=== PATIENT | male | born 2005 | race Caucasian/White ===

== ENCOUNTER 2025-01-17 05:38 | Day surgery (SDC) | payer BC ==
[2025-01-13 12:33] VITALS: BMI 23.6
[2025-01-17] MEDS ORDERED: AFRIN NASAL MIST 15 ML BOT ONE ×2 (06:16→08:22)
[2025-01-17] MEDS ORDERED: Tranexamic Acid 1,000 MG/10 ML VIAL ONE ×2 (06:24→08:22)
[2025-01-17] MEDS ORDERED: Lidocaine 4% Topical Sol 50 ML BOT ONE (06:24)
[2025-01-17] MEDS ORDERED: Oxymetazoline HCl 0.05% (15 ML) ONE (06:30)
[2025-01-17] MEDS ORDERED: Ondansetron PF 4 MG/2 ML Vial ONE (08:18)
[2025-01-17] MEDS ORDERED: Rocuronium Bromide 10 MG/ML (10ML VIAL) ONE (08:18)
[2025-01-17] MEDS ORDERED: SUGAMMADEX SODIUM 200 MG/2 ML VIAL ONE (08:18)
[2025-01-17] MEDS ORDERED: PROPOFOL 20 ML ONE (08:18)
[2025-01-17] MEDS ORDERED: Bacitracin 1 PK ONE (08:22)
[2025-01-17] MEDS ORDERED: Lidocaine 1% w/Epinephrine 1:200K 30 ML VIAL ONE (08:23)
[2025-01-17] MEDS ORDERED: HYDROcodone/Acetaminophen 5/325 mg Tablet ONE (17:31)
== END 2025-01-17 18:17 | disposition home or self-care (01) ==
LOC: CSHSDC 05:38
PROVIDERS: ATTEND Otolaryngology
PROC: 09BX8ZZ Excision of Left Sphenoid Sinus, Via Natural or Artificial Opening Endoscopic (ICD-10-PCS; principal; 2025-01-17)
PROC: 09BS8ZZ Excision of Right Frontal Sinus, Via Natural or Artificial Opening Endoscopic (ICD-10-PCS; principal; 2025-01-17)
PROC: 09BV8ZZ Excision of Left Ethmoid Sinus, Via Natural or Artificial Opening Endoscopic (ICD-10-PCS; principal; 2025-01-17)
PROC: 09BT8ZZ Excision of Left Frontal Sinus, Via Natural or Artificial Opening Endoscopic (ICD-10-PCS; principal; 2025-01-17)
PROC: 09BW8ZZ Excision of Right Sphenoid Sinus, Via Natural or Artificial Opening Endoscopic (ICD-10-PCS; principal; 2025-01-17)
PROC: 09BR8ZZ Excision of Left Maxillary Sinus, Via Natural or Artificial Opening Endoscopic (ICD-10-PCS; principal; 2025-01-17)
PROC: 09BU8ZZ Excision of Right Ethmoid Sinus, Via Natural or Artificial Opening Endoscopic (ICD-10-PCS; principal; 2025-01-17)
PROC: 09BQ8ZZ Excision of Right Maxillary Sinus, Via Natural or Artificial Opening Endoscopic (ICD-10-PCS; principal; 2025-01-17)
DX: J32.9 Chronic sinusitis, unspecified (principal); J34.2 Deviated nasal septum; J34.3 Hypertrophy of nasal turbinates; R09.81 Nasal congestion
CPT/HCPCS: 88305; 88311; J0169; J1100; J2250; J2704; J3010